=== PATIENT | female | born 1950 | race Caucasian/White ===

== ENCOUNTER 2021-05-18 14:41 | Inpatient (IN) | payer MEDICARE ==
[2021-05-18 15:45] LABS: #Lymphocytes 1.2 thou/uL (1.20-3.40); #Monocytes 0.8 thou/uL (0.11-0.59); #Neutrophils 7.8 thou/uL (1.40-6.50); %Basophils 0.3 % (0.0-1.0); %Eosinophils 0.3 % (0.0-10.0); %Lymphocytes 12.5 % (21.0-51.0); %Monocytes 7.9 % (0.0-10.0); Hemoglobin 11.1 g/dL (12.0-16.0); Mean Corpuscular HGB CONC 32.9 g/dL (32.0-36.0); Mean Corpuscular Hemoglobin 32.1 pg (27.0-31.0); Mean Corpuscular Volume 97.6 fL (78.0-98.0); Mean Platelet Volume 6.7 fL (7.4-10.4); Platelet Count 453 thou/uL (130-400); RBC Distribution Width 11.5 % (11.5-14.5); Red Blood Cell (RBC) Count 3.44 mill/uL (4.20-5.40); White Blood Cell (WBC) Count 9.9 thou/uL (4.8-10.8)
[2021-05-18 16:03] LABS: ALT (SGPT) 10 U/L (8-55); AST (SGOT) 12 U/L (5-34); Albumin 3.6 g/dL (3.4-4.8); Alkaline Phosphatase 74 U/L (40-110); Anion Gap 13 mmol/L (10-20); BUN (Urea Nitrogen) 10 mg/dL (9.8-20.1); Bilirubin, Total 0.7 mg/dL (0.2-1.2); Calc. Creatinine Clearance 0 mL/min (70-130); Calcium 8.1 mg/dL (7.8-10.44); Carbon Dioxide 23 mmol/L (23-31); Chloride 107 mmol/L (98-107); Globulin 2.4 g/dL (2.4-3.5); Glucose 95 mg/dL (80-115); Potassium 4.3 mmol/L (3.5-5.1); Sodium 139 mmol/L (136-145)
[2021-05-18 19:57] LABS: Troponin I Less than 0.010 ng/mL (< 0.028)
[2021-05-18] MEDS ORDERED: Acetaminophen 650 MG Suppository PR PRN (22:17)
[2021-05-18] MEDS ORDERED: Nitroglycerin 0.4 MG TAB (25 Tab Bottle) SL PRN (22:17)
[2021-05-18] MEDS ORDERED: Ondansetron ODT 4 MG TAB PO PRN (22:17)
[2021-05-18] MEDS ORDERED: Acetaminophen 325 MG TAB PO PRN (22:17)
[2021-05-18] MEDS ORDERED: Ondansetron PF 4 MG/2 ML Vial IVP PRN (22:17)
[2021-05-18 23:43] LABS: Troponin I Less than 0.010 ng/mL (< 0.028)
[2021-05-19 04:50] LABS: #Basophils 0.1 thou/uL (0.0-0.2); #Eosinphils 0.1 thou/uL (0.0-0.7); #Lymphocytes 1.9 thou/uL (1.20-3.40); #Monocytes 0.7 thou/uL (0.11-0.59); #Neutrophils 4.4 thou/uL (1.40-6.50); %Basophils 0.7 % (0.0-1.0); %Eosinophils 1.3 % (0.0-10.0); %Lymphocytes 26.2 % (21.0-51.0); %Monocytes 10.2 % (0.0-10.0); %Neutrophils 61.6 % (42.0-75.0); Hemoglobin 11.2 g/dL (12.0-16.0); Mean Corpuscular HGB CONC 32.6 g/dL (32.0-36.0); Mean Corpuscular Hemoglobin 31.6 pg (27.0-31.0); Mean Platelet Volume 6.9 fL (7.4-10.4); Platelet Count 454 thou/uL (130-400); RBC Distribution Width 11.5 % (11.5-14.5); Red Blood Cell (RBC) Count 3.54 mill/uL (4.20-5.40); White Blood Cell (WBC) Count 7.1 thou/uL (4.8-10.8)
[2021-05-19 05:13] LABS: Anion Gap 12 mmol/L (10-20); BUN (Urea Nitrogen) 12 mg/dL (9.8-20.1); Calc. Creatinine Clearance 81 mL/min (70-130); Carbon Dioxide 26 mmol/L (23-31); Chloride 107 mmol/L (98-107); Glucose 90 mg/dL (80-115); Potassium 4.4 mmol/L (3.5-5.1); Sodium 141 mmol/L (136-145)
[2021-05-19] MEDS ORDERED: Colchicine 0.6 MG TAB PO SCH (05:30)
[2021-05-19] MEDS ORDERED: Aspirin 325 MG TAB PO SCH (05:30)
[2021-05-19 06:24] LABS: Iron 44 ug/dL (50-170); Iron Binding Capacity, Total 215 mcg/dL (265-497)
[2021-05-19] MEDS: Aspirin Chewable 81 MG TAB PO SCH (08:47)
[2021-05-19 12:24] LABS: SARS-CoV-2 PCR by NAA Not Detected (NotDetected)
[2021-05-19 12:36] LABS: Legionella Urinary Ag Negative (Negative); Strep pneumo Urine Ag NEGATIVE (NEGATIVE)
[2021-05-19 14:06] VITALS: BMI 25.5
[2021-05-19] MEDS ORDERED: methylPREDNISolone Sod Succ/PF 125 MG/2 ML VIAL IVP SCH (16:51)
[2021-05-19] MEDS: Cefepime 1 GM in Sodium Chloride 0.9% 100 ML IVPB SCH (16:55)
[2021-05-19] MEDS: Vancomycin 1.5 GRAM/300 ML BAG 1.5 GM in Premix Bag 1 BAG IVPB SCH (17:46)
[2021-05-19] MEDS: Colchicine 0.6 MG TAB PO SCH (20:10)
[2021-05-19] MEDS: Aspirin 325 MG TAB PO SCH (20:10)
[2021-05-20] MEDS: Cefepime 1 GM in Sodium Chloride 0.9% 100 ML IVPB SCH ×2 (04:40→15:28)
[2021-05-20] MEDS: Colchicine 0.6 MG TAB PO SCH (09:39)
[2021-05-20] MEDS: Aspirin 325 MG TAB PO SCH (11:49)
[2021-05-20] MEDS: Aspirin Chewable 81 MG TAB PO SCH (11:49)
[2021-05-20] MEDS: Vancomycin 1.5 GRAM/300 ML BAG 1.5 GM in Premix Bag 1 BAG IVPB SCH (17:07)
[2021-05-20 18:21] VITALS: BP 131/63; TEMP 98.5
== END 2021-05-20 19:42 | disposition home or self-care (01) | DRG 195 ==
LOC: ERS 14:41 → 2NO 19:04 → OBSVTOIN 05-19 16:19
PROVIDERS: ADMIT Family Medicine; ATTEND Internal Medicine
DX: J18.9 Pneumonia, unspecified organism (principal); Z20.822 Contact with and (suspected) exposure to COVID-19; D64.9 Anemia, unspecified; K21.9 Gastro-esophageal reflux disease without esophagitis; I08.3 Combined rheumatic disorders of mitral, aortic and tricuspid valves; I45.10 Unspecified right bundle-branch block; Z90.49 Acquired absence of other specified parts of digestive tract
CPT/HCPCS: 36415; 71045; 71275; 80048; 80053; 82728; 83540; 83550; 84484; 85025; 85379; 86140; 87449; 87633; 87899; 93005; 93306; 94760; G0378; J0692; J2930; J3370; J3490; U0003; U0005